=== PATIENT | female | born 1960 | race Caucasian/White ===

== ENCOUNTER 2016-12-07 11:46 | Emergency (ER) | payer OTHER ==
[~2016-12-07] VITALS: Ht 157.5 cm; Wt 61.4 kg
[~2016-12-07 11:46] MED LIST: INSU100V7 SUBQ; ONDA8TAB10 PO
[2016-12-07 11:48] VITALS: BP 152/77; PULSE 97; RESP 18; O2SAT 98
--- NOTE | 2016-12-07 12:26 | ED.REPORT ---
HPI-General Illness Date of Service Dec 07, 2016 ED Provider: Wilfred Trujillo MD The patient is a 56 year old female with history of asthma. diabetes mellitus who presents to the emergency department complaining of a flu-like illness that began 3 weeks ago. She has experienced dyspnea with exertion, cough with clear sputum, subjective fever, and chills. She was seen at the walk-in clinic, tested negative for the flu, and was discharged home with an inhaler and Prednisone to use if she is wheezing. She feels like her symptoms are not improving and she has also recently noticed elevated blood sugars. She takes NovoLog and Lantus. She denies nausea, vomiting, or weight gain. Nursing Notes Stated Complaint: NAUSEA/SOB Chief Complaint: Respiratory Complaints Nursing Notes Reviewed: Yes Allergies: Coded Allergies: latex (Verified Allergy, Severe, HIVES/BREATHING PROBLEMS, 07/31/16) rosiglitazone (Verified Allergy, Severe, IMMED CHF, SEVERE, 07/31/16) Uncoded Allergies: NUTS AND HONEY (Allergy, Severe, BREATHING TROUBLE/HIVES, 09/21/07) SULFA (Adverse Reaction, Mild, N/V, 09/04/09) Scheduled Insulin Glargine (Lantus U100 Insulin Vial) 100 Unit/Ml Vial 40 UNIT SUBQ HS Scheduled PRN Ondansetron ODT (Ondansetron ODT) 8 Mg Tab.rapdis 8 MG PO Q4H PRN PRN For Nausea General Time Seen by MD: 11:54 Chief Complaint Flu-like illness Hx Obtained From: Patient Arrived By: Walk-in Sudden in Onset?: No Onset Occurred: More than a week ago... (3 weeks) Symptom Duration: Since onset Severity: Current: Moderate Severity: Maximum: Moderate Recent Healthcare: No recent hospitalization, Recent doctor visit Similar Sx Previous: No Past Medical History Past Medical History Sarcoidosis Asthma Hypertension Diabetes mellitus type II Depression Past Surgical History Lung biopsy Family History Noncontributory Smoking History Former Smoker Social History Drug Use: Denies drug use Other Social History: Good social support, Local resident Occupation Works for [employer] Ambulatory Status Independent Review of Systems -weight gain Full Review of Systems Constitutional: Reports: Chills, Fever Respiratory: Reports: Dyspnea on exertion, Prod cough, clear, Shortness of breath GI: Denies: Nausea, Vomiting Complete sys rev & neg: except as marked. Physical Exam Vital Signs Vital Signs Date Time Temp Pulse Resp B/P Pulse Ox O2 Delivery O2 Flow Rate FiO2 12/07/16 14:55 36.9 18 119/66 97 Room Air 12/07/16 12:52 88 14 98 Room Air 12/07/16 11:48 36.6 97 18 152/77 98 Room Air Initial VS: Reviewed Head / Eyes: Atraumatic, Normocephalic, PERRL Neck: Supple, Non-tender, Full range of motion Lymphatic: No lymphadenopathy Extremities: Vascular intact, Neuro intact, No swelling, No tenderness Skin: Warm, Dry, No cyanosis Neurologic: Alert, Oriented, Nonfocal Psychiatric: Mood/affect normal, Behavior normal, Normal thought content General/Constitutional: Awake, Alert, Cooperative ENT: Atraumatic, Airway patent, Mucous membranes moist, Pharynx NL Respiratory / Chest: Atraumatic, Breath sounds = bilat, No respiratory distress , No rales, No rhonchi, No wheezing, No retractions, No chest tenderness, No chest wall deformity Diminished Breath Sounds: Positive: Decreased bilateral (slightly) No crackles Cardiovascular: Heart rate NL, Regular rhythm, Heart sounds NL, No gallop, No murmurs, No rubs, Cap refill not delayed, Peripheral circulation NL, Pulses = bilaterally Abdomen: Atraumatic, Soft, Non-tender, No guarding, No rebound, BS normoactive , No distention Lower Extremity / Pelvis / MS: No swelling, Neurologic intact, Vascular intact , No edema No calf tenderness or swelling. No palpable cords. Interpretation & Diagnostics Lab Results Interpretation Result Diagram: 12/07/16 1200 12/07/16 1200 Test 12/07/16 12:00 White Blood Count 10.4th/mm3 (3.8-10.1) Red Blood Count 5.02mil/mm3 (3.90-5.20) Hemoglobin 13.4g/dL (12.0-15.6) Hematocrit 39.2% (35.0-46.0) Mean Corpuscular Volume 78.1fL (81-100) Mean Corpuscular Hemoglobin 26.7pg (27.0-35.0) Mean Corpuscular Hemoglobin Concent 34.2% (32.0-37.0) Red Cell Distribution Width 12.1% (12.3-15.4) Platelet Count 313bil/L (150-400) Neutrophils (%) (Auto) 70.6% (40-74) Lymphocytes (%) (Auto) 18.2% (14-46) Monocytes (%) (Auto) 6.7% (4-12) Eosinophils (%) (Auto) 3.3% (0-5) Basophils (%) (Auto) 0.4% (0-3) Hold Purple Top Tube Received (Received) Hold Blue Top Tube Received (Received) Sodium Level 134mEq/L (134-144) Potassium Level 3.8mEq/L (3.5-5.2) Chloride Level 93mEq/L (97-108) Carbon Dioxide Level 24mmol/L (18-29) Blood Urea Nitrogen 16mg/dL (6-24) Creatinine 0.74mg/dL (0.57-1.00) Estimat Glomerular Filtration Rate 116mL/min (>59) Glucose Level 302mg/dL (60-99) Calcium Level 9.5mg/dL (8.5-10.1) Magnesium Level 1.6mg/dL (1.6-2.6) Total Bilirubin 0.5mg/dL (0.0-1.2) Aspartate Amino Transf (AST/SGOT) 14U/L (0-50) Alanine Aminotransferase (ALT/SGPT) 13U/L (0-32) Alkaline Phosphatase 97U/L (25-150) Troponin T < 0.010ug/L (0.0-0.011) Pro-B-Type Natriuretic Peptide 312.0pg/mL (0-287) Total Protein 7.1g/dL (6.4-8.4) Albumin 3.6g/dL (3.4-5.0) Hold [place] Top Tube Received (Received) Hold [place] Top Tube Received (Received) ECG Interpretation ECG Interpretation: Sinus rhythm with a rate of 99 bpm Normal axis Normal intervals Mild ST depression of less than 1 mm in lateral leads, otherwise no ST segment changes No T wave abnormalities No other EKGs available for comparison Time: 13:06 Interpreted by: ED physician X-Ray Chest Interpretation Chest Xray Interpretation: IMPRESSION: No acute process. Dictated by: Roslyn Villegas M.D. on 12/07/2016 at 13:13 Interpretation / Wet Read by: Interpret - Radiologist Re-Eval/Medical Decision Med Decision/Clinical Course The patient is a 56 year old female with history of asthma. diabetes mellitus who presents to the emergency department complaining of a flu-like illness that began 3 weeks ago. She has experienced dyspnea with exertion, cough with clear sputum, subjective fever, and chills. She was seen at the walk-in clinic, tested negative for the flu, and was discharged home with an inhaler and Prednisone to use if she is wheezing. She has not started the prednisone that she has not noticed any wheezing noises that she is continued to have dyspnea on exertion. On arrival the patient has oxygen saturation of 100% on room air, speaking in full sentences and in no apparent distress. Examination does reveal decreased air movement throughout both lung marvin. CXR: Obtained, reviewed and interpreted by myself shows no evidence of acute infiltrates, effusions or pneumothorax. Cardiac and mediastinal silhouette normal. No bony or soft tissue abnormalities. LABS: leukocytosis of 104, hematocrit 39, MCV 78 - CBC otherwise unremarkable. BNP 300, negative troponin, CMP otherwise unremarkable. Emergency Department the patient was treated with 1 DuoNeb and reported significant symptomatic improvement. She had improved air movement b/l. At this time, I see no convincing evidence of pulmonary edema or acute onset congestive heart failure. There is no evidence that her presentation is related to acute coronary syndrome and initial EKG is performed by myself documented above and initial troponin are both reassuring. Her overall presentation is unconvincing for pulmonary embolism and I do not feel that further workup for PE is indicated at this time. Given her response to DuoNeb therapy I suspect that the patient's presentation may be related to her underlying obstructive lung disease. She has been advised to start taking the prednisone that was previously prescribed and use her albuterol inhaler every 2- 4 hours for the next 24-48 hours and then as needed. She was provided with follow-up precautions will follow up with her primary care physician next week. She will start taking her insulin as prescribed given that her blood sugars are 300 and she is now starting to take steroids. Follow up with her precautions were reviewed in detail and she verbalizes understanding and agreement with the plan. She was discharged in stable condition. Source of Hx: Old records, Family Time of Eval: 15:07 Re-Evaluation/Progress Note: Rechecked the patient. She is feeling better. Discussed plan for discharge. All questions were addressed. Counseled Regarding: Diagnosis, Lab results, Need for follow-up, When/why to return to ED Discharge & Departure Primary Impression: Asthma exacerbation Additional Impressions: Hyperglycemia due to type 2 diabetes mellitus Shortness of breath Low mean corpuscular volume (MCV) Elevated brain natriuretic peptide (BNP) level Noncompliance w/medication treatment due to intermit use of medication Disposition: Home Discharge Condition All VS Reviewed: Yes Condition: Stable Patient Instructions: Asthma (ED) Additional Instructions: Thank you for seeking care at the emergency room. It is difficult for us to make definitive diagnoses in the ED but we believe that you are experiencing an asthma exacerbation. Our primary goal today in the ED was to evaluate you for any life-threatening conditions. Your evaluation was reassuring. Start taking the steroids that were previously prescribed. Use the albuterol inhaler, 2 puffs every 2-4 hours for the next 24-48 hours. You should follow-up with your primary doctor in the next week. You should return to the ED immediately if you develop difficulty breathing, chest pain, fevers, vomiting, lightheadedness, weakness or any other concerning signs or symptoms. Thank you for letting us partake in your care today. Referrals: Hermilo Rosenberg DO (PCP) Lucineibcris Attestation Portions of this note were transcribed by Meg Smith. I, Dr. Trujillo personally performed the history, physical exam and medical decision-making; I reviewed and confirmed the accuracy of the information in the transcribed note. Signed by: Paige Pérez, 12/07/2016 and [id number]. copies to: Hermilo Rosenberg Beck O MD Dec 07, 2016 12:26 Meg Smith Dec 07, 2016 12:27
[2016-12-07] MEDS ORDERED: Albuterol-Ipratropium 3 mL Inhalation Solution NEB ONE (12:40)
[2016-12-07 12:50] LABS: BASOPHILS % (AUTO) 0.4 % (0-3); EOSINOPHILS % (AUTO) 3.3 % (0-5); MONOCYTES % (AUTO) 6.7 % (4-12); Mean Corpuscular Hemoglobin 26.7 pg (27.0-35.0); Mean Corpuscular Volume 78.1 fL (81-100); NEUTROPHILS % (AUTO) 70.6 % (40-74); Platelet Count 313 bil/L (150-400)
[2016-12-07 12:52] VITALS: PULSE 88; RESP 14; O2SAT 98
--- NOTE | 2016-12-07 13:15 | DRSVH ---
PROCEDURE: X-RAY CHEST, TWO VIEWS ([id number]) INDICATIONS: sob TECHNIQUE: 2 views of the chest were acquired. COMPARISON: None. FINDINGS: Surgical changes and devices: None. Lungs and pleura: No pleural effusions or pneumothorax. Lungs are clear. Mediastinum: Mediastinal contours are normal. Heart size is normal. Bones and chest wall: No suspicious bony abnormalities. Soft tissues appear unremarkable. IMPRESSION: No acute process. Dictated by: Roslyn Villegas M.D. on 12/07/2016 at 13:13 Approved by: Roslyn Villegas M.D. on 12/07/2016 at 13:14
[2016-12-07 13:26] LABS: Magnesium 1.6 mg/dL (1.6-2.6)
[2016-12-07 13:29] LABS: TROPONIN T < 0.010 ug/L (0.0-0.011)
[2016-12-07 14:55] VITALS: BP 119/66; RESP 18; O2SAT 97
[2016-12-07 15:19] VITALS: BP 121/65; PULSE 94; RESP 15; O2SAT 99
== END 2016-12-07 15:15 | disposition home or self-care (01) ==
LOC: SED 11:46
DX: J45.901 Unspecified asthma with (acute) exacerbation (principal); E11.65 Type 2 diabetes mellitus with hyperglycemia; R71.8 Other abnormality of red blood cells; R79.89 Other specified abnormal findings of blood chemistry; I10 Essential (primary) hypertension; Z91.19 Patient's noncompliance with other medical treatment and regimen; Z87.891 Personal history of nicotine dependence; Z91.040 Latex allergy status; Z88.8 Allergy status to other drugs, medicaments and biological substances; Z79.4 Long term (current) use of insulin
CPT/HCPCS: 36415; 71020; 80053; 83735; 83880; 84484; 85025; 87040; 93005; 94664; 99285; J7620

== ENCOUNTER 2017-03-06 09:00 | Emergency (ER) | payer OTHER ==
[~2017-03-06] VITALS: Ht 154.9 cm; Wt 66.4 kg
[2017-03-06 09:15] VITALS: BP 182/90; PULSE 85; RESP 16; O2SAT 100
[2017-03-06] MEDS ORDERED: HYDROmorphone 1 mg/mL Inj ONE (09:27)
--- NOTE | 2017-03-06 09:33 | ED.REPORT ---
HPI-Extremity Problem Upper Date of Service Mar 06, 2017 ED Provider: Emanuel Gomez MD A right handed 56 year old female with h/o HTN and diabetes presents to the ED via EMS c/o left shoulder pain s/p patient tripping over box at work and falling on her outstretched left arm. She denies h/o right arm injury. She denies any numbness or weakness. Associated high blood sugar that has been around 400 for the last few days. She is currently on 40units dose slow acting insulin she is supposed to take in the evening, her last dose being 1 week ago. Denies h/o DKA. She is on aspirin. Nursing Notes Stated Complaint: LEFT SHOULDER PAIN Chief Complaint: Extremity Trauma Nursing Notes Reviewed: Yes ([employer], [employer] not reconciled) Allergies: Coded Allergies: latex (Verified Allergy, Severe, HIVES/BREATHING PROBLEMS, 03/06/17) rosiglitazone (Verified Allergy, Severe, IMMED CHF, SEVERE, 03/06/17) Sulfa (Sulfonamide Antibiotics) (Verified Allergy, Unknown, Nausea, Vomiting, 03/06/17) Uncoded Allergies: NUTS AND HONEY (Allergy, Severe, BREATHING TROUBLE/HIVES, 09/21/07) Scheduled Insulin Glargine (Lantus U100 Insulin Vial) 100 Unit/Ml Vial 40 UNIT SUBQ HS Scheduled PRN Hydrocodone-Acetaminophen 5-325 mg (Hydrocodone-Acetaminophen 5-325 mg) 1 Each Tablet 1-2 TABLET PO Q4H PRN PRN For Pain Ondansetron ODT (Ondansetron ODT) 8 Mg Tab.rapdis 8 MG PO Q4H PRN PRN For Nausea Ondansetron ODT (Ondansetron ODT) 8 Mg Tab.rapdis 8 MG PO Q4H PRN PRN For Nausea General Time Seen by MD: 09:31 Chief Complaint Shoulder injury left Hx Obtained From: Patient, EMS Arrived By: Ambulance Onset Occurred: 1 - 4 hours ago (earlier this morning) Symptom Duration: Since onset Caused by: Fall on ground (tripped over box at work) Location: : Shoulder left Severity: Current: Moderate Severity: Maximum: Moderate Recent Healthcare: No recent doctor visit Similar Sx Previous: No Past Medical History Past Medical History Notes: 12/07/16 ED viit for flu like symptoms Past Medical History Sarcoidosis Asthma Hypertension Diabetes mellitus type II Depression Denies Hx of DKA Past Surgical History Lung biopsy Reports: Appendectomy, (x2), Hysterectomy (partial), Denies: Cholecystectomy Family History Noncontributory Smoking History Former Smoker Social History Drug Use: Denies drug use Other Social History: Good social support, Local resident Occupation Works for [employer] Ambulatory Status Independent Review of Systems Review of Systems Note: high blood sugar Constitutional: Denies: Chills, Fever Musculoskeletal: Reports: Extremity pain (left shoulder) Neurologic: Denies: Numbness, Weakness Complete sys rev & neg: except as marked. Physical Exam Initial Vital Signs Vital Signs (First) Date Time Temp Pulse Resp B/P Pulse Ox O2 Delivery O2 Flow Rate FiO2 03/06/17 09:15 36.6 85 16 182/90 100 Room Air Initial VS: Reviewed, Vital signs abnormal (HTN) General/Constitutional: Awake, Alert Respiratory / Chest: Atraumatic, Breath sounds NL, Breath sounds = bilat, No respiratory distress, No rales, No rhonchi, No wheezing Cardiovascular: Heart rate NL, Regular rhythm, Heart sounds NL, No gallop, No murmurs, No rubs Left Upper Arm: Positive: Tenderness present... (Tenderness and decreased ROM to left proximal humerus head. ) Skin: Atraumatic, Color NL, Warm, Dry Neurologic: Oriented X3, Speech NL Head / Eyes: Atraumatic, Normocephalic, PERRL, EOMI ENT: Atraumatic, Mucous membranes moist Abdomen: Atraumatic, No guarding, No rebound Lower Extremity / Pelvis / MS: Atraumatic (No visible signs of trauma or injury to the knees.), Inspection NL Interpretation & Diagnostics Lab Results Interpretation Result Diagram: 03/06/17 1000 03/06/17 1000 Test 03/06/17 10:00 White Blood Count 6.0th/mm3 (3.8-10.1) Red Blood Count 4.48mil/mm3 (3.90-5.20) Hemoglobin 12.3g/dL (12.0-15.6) Hematocrit 35.5% (35.0-46.0) Mean Corpuscular Volume 79.2fL (81-100) Mean Corpuscular Hemoglobin 27.5pg (27.0-35.0) Mean Corpuscular Hemoglobin Concent 34.6% (32.0-37.0) Red Cell Distribution Width 11.8% (12.3-15.4) Platelet Count 191bil/L (150-400) Neutrophils (%) (Auto) 71.9% (40-74) Lymphocytes (%) (Auto) 18.1% (14-46) Monocytes (%) (Auto) 5.7% (4-12) Eosinophils (%) (Auto) 3.0% (0-5) Basophils (%) (Auto) 1.0% (0-3) Sodium Level 134mEq/L (134-144) Potassium Level 4.5mEq/L (3.5-5.2) Chloride Level 95mEq/L (97-108) Carbon Dioxide Level 22mmol/L (18-29) Blood Urea Nitrogen 28mg/dL (6-24) Creatinine 0.78mg/dL (0.57-1.00) Estimat Glomerular Filtration Rate 109mL/min (>59) Glucose Level 472mg/dL (60-99) Calcium Level 9.8mg/dL (8.5-10.1) Total Bilirubin 0.5mg/dL (0.0-1.2) Aspartate Amino Transf (AST/SGOT) 20U/L (0-50) Alanine Aminotransferase (ALT/SGPT) 19U/L (0-32) Alkaline Phosphatase 99U/L (25-150) Total Protein 6.9g/dL (6.4-8.4) Albumin 4.1g/dL (3.4-5.0) Lab Results Interpretation: CBC normal CMP normal except for hyperglycemia and no anion gap acidosis Venous blood gas normal X-Ray Interpretation Xray Interpretation: PROCEDURE: X-RAY LEFT HUMERUS, MINIMUM TWO VIEWS ([id number]) IMPRESSION: Minimally displaced acute fracture of the left humeral head and neck. Dictated by: Frankie Crenshaw M.D. on 03/06/2017 at 9:56 Approved by: Frankie Crenshaw M.D. on 03/06/2017 at 9:56 X-Ray Ordered: Humerus left Interpretation / Wet Read by: Interpret - Radiologist Re-Eval/Medical Decision Med Decision/Clinical Course Is a 56-year-old insulin dependent diabetic noncompliant on taking any insulin for a week, who presents complaining of a mechanical trip with her outstretched left arm with pain left shoulder. She denies any injury except for scraped knees. On exam she is clinical findings concerning for possible left shoulder fracture without dislocation. Arm is neurovascularly intact and there are no open wounds. An Accu-Chek was over 400 and patient not had any of either her long-acting or short-acting insulin for the past 7 days description want to take any. She otherwise appears well denies polyuria, polyphagia, polydipsia or other symptoms. Past history of proximal humerus fracture, lab work reveals hyperglycemia but no evidence of DKA. The patient is a titrated pain medicine, arm was placed in a sling. She is being discharged to follow-up with orthopedist. Pain management recommendations reviewed, the need to manage her diabetes was discussed as well, and the patient's discharge in improved condition. Source of Hx: Old records, EMS Re-Evaluation/Progress #1: Time of Eval: 09:42 Patient Status: Condition improved Re-Evaluation/Progress Note: Patient feels better after she was given pain medication. Re-Evaluation/Progress #2: Time of Eval: 10:17 Patient Status: Condition improved Re-Evaluation/Progress Note: Rechecked patient, explained test results, diagnosis, and plan for discharge. Patient understands and agrees with the plan. All questions addressed. Differential Diagnosis: Positive: Humerus fracture Counseled Regarding: Diagnosis, Lab results, Need for follow-up, When/why to return to ED Discharge & Departure Impression: Primary Impression: Humerus fracture Encounter type: initial encounter Humerus Location: proximal Fracture type : closed Fracture alignment: displaced Laterality: left Additional Impressions: Hyperglycemia due to type 2 diabetes mellitus Diabetes mellitus longterm insulin use: unspecified longterm insulin use status Qualified Code: E11.65 - Type 2 diabetes mellitus with hyperglycemia HTN (hypertension) Hypertension type: essential hypertension Qualified Code: I10 - Essential ( primary) hypertension Noncompliance with medication regimen Disposition: Home Discharge Condition All VS Reviewed: Yes Condition: Improved Additional Instructions: 1. You X-ray demonstrates a fracture of the proximal humerus. 2. Now keep the arm in a sling for comfort, the sling acts as a splint. However you need to follow up with orthopedist, and they will help such up with physical therapy. 3. Take ibuprofen 400 mg 3 times a day for pain as needed. 4. If needed for more severe pain take hydrocodone/APAP 05/325 1-2 tabs up to every 4-6 hours. This medication contains a narcotic as well as some Tylenol. Do not take additional Tylenol simultaneous to taking the hydrocodone/APAP, but you can take it 4 hours after taking a dose of hydrocodone/APAP (in place of hydrocodone/APAP). this medication does contain a narcotic and causes drowsiness. No driving for at least 4-6 hours after taking. Try to use sparingly as normal to require at the first couple of days, but after the first few days the use should diminish rapidly. It takes the edge off the pain but does not completely resolve it. Some people w find that after the first few days that they do well during the day but require a dose at bedtime. 5. Your blood sugar was very elevated today from skipping her insulin the past week. It is really important to manage your diabetes. Blood sugars that are this high will impede the fracture healing, and over time lead to a multitude of other complications. At least take the long-acting Lantus insulin. Follow up with your regular doctor. Referrals: Hermilo Rosenberg DO (PCP) Wayne Hobbs Attestation Portions of this note were transcribed by Tommie Monge. I, Dr. Gomez personally performed the history, physical exam and medical decision-making; I reviewed and confirmed the accuracy of the information in the transcribed note. Signed by: Paige Frias, 03/06/2017, 1043. copies to: Wayne Hobbs DO; Hermilo Rosenberg Matthew F MD Mar 06, 2017 09:33 Tommie Monge Mar 06, 2017 09:39
[2017-03-06] MEDS ORDERED: 0.9% Sodium Chloride 1,000 ML IV ONE (09:35)
[2017-03-06] MEDS ORDERED: HYDROmorphone 0.5 mg/0.5 mL iSecure Syringe IVPUSH PRN (09:35)
[2017-03-06] MEDS ORDERED: Ondansetron 8 mg ODT Tablet PO ONE (09:35)
[2017-03-06] MEDS ORDERED: HYDROmorphone 1 mg/mL Inj IM ONE (09:35)
[2017-03-06] MEDS ORDERED: Ondansetron 2 mg/mL 2 mL Inj IVPUSH ONE (09:35)
--- NOTE | 2017-03-06 09:58 | DRSVH ---
PROCEDURE: X-RAY LEFT HUMERUS, MINIMUM TWO VIEWS ([id number]) INDICATIONS: 56 year-old female with left upper arm pain after fall. TECHNIQUE: 2 views of the humerus were acquired. COMPARISON: None. FINDINGS: Bones: Minimally displaced fracture of the left humeral head and neck is present. Other bones appear intact. No suspicious bony lesions. Soft tissues: No suspicious soft tissue calcifications. IMPRESSION: Minimally displaced acute fracture of the left humeral head and neck. Dictated by: Frankie Crenshaw M.D. on 03/06/2017 at 9:56 Approved by: Frankie Crenshaw M.D. on 03/06/2017 at 9:56
[2017-03-06 10:10] LABS: MONOCYTES % (AUTO) 5.7 % (4-12); Mean Corpuscular Hemoglobin 27.5 pg (27.0-35.0); Mean Corpuscular Volume 79.2 fL (81-100); NEUTROPHILS % (AUTO) 71.9 % (40-74); Platelet Count 191 bil/L (150-400)
--- NOTE | 2017-03-06 10:15 | ABG ---
DateTimeAnalyzed 10:09:00 -_ pH ____7.378 - pCO2 ___42.3__ -mmHg pO2 ___54.8__ -mmHg HCO3- ___24.3__ -mmol/L ABE ___-0.4__ -mmol/L tHb ___12.5__ -g/dL O2Hb ___86.3__ -% COHb ____1.7__ -% MetHb ____1.0__ -% sO2 ___88.7__ -% FIO2 ___21.0__ -% Drawn By NSG - Date/Time Notified____ 10:15:00 -_ Notified By RC - Notified Whom SARAI,MD - B 766 -mmHg tO2 ___15.2__ -Vol% Kevin test N/A -
[2017-03-06] MEDS ORDERED: HYDR-4003 PO (10:40)
[2017-03-06] MEDS ORDERED: ONDA8TAB10 PO (10:40)
[2017-03-06] MEDS ORDERED: HYDROcodone-APAP 5-325 mg Tablet PO ONE ×2 (12:46→12:55)
== END 2017-03-06 13:04 | disposition home or self-care (01) ==
LOC: SED 09:00 → EDSEX 09:00 → EDBD 09:00 → SED 13:04
DX: S42.292A Other displaced fracture of upper end of left humerus, initial encounter for closed fracture (principal); S42.212A Unspecified displaced fracture of surgical neck of left humerus, initial encounter for closed fracture; W18.09XA Striking against other object with subsequent fall, initial encounter; Y93.89 Activity, other specified; Y92.69 Other specified industrial and construction area as the place of occurrence of the external cause; Y99.0 Civilian activity done for income or pay; E11.65 Type 2 diabetes mellitus with hyperglycemia; I10 Essential (primary) hypertension; J45.909 Unspecified asthma, uncomplicated; Z91.14 Patient's other noncompliance with medication regimen; Z79.82 Long term (current) use of aspirin; Z79.4 Long term (current) use of insulin; Z87.891 Personal history of nicotine dependence; Z88.2 Allergy status to sulfonamides; Z88.8 Allergy status to other drugs, medicaments and biological substances; Z91.040 Latex allergy status
CPT/HCPCS: 36415; 73060; 80053; 82375; 82803; 85025; 96361; 96372; 96374; 99285; J1170; J2405; J7030